=== PATIENT | male | born 1975 | race Caucasian/White ===

== ENCOUNTER 2020-08-18 01:35 | Emergency (ER) | payer OTHER, SELFPAY ==
[~2020-08-18] VITALS: Ht 177.8 cm; Wt 108.9 kg
[2020-08-18 01:35] VITALS: BP_SYST 140
--- NOTE | 2020-08-18 01:35 | NUR ---
Placed in room 02 . Placed on quality assurance monitor final, blood pressure machine and pulse oximeter. To gown for exam. Side rails up. Report given to OUTSIDE SALES REPRESENTATIVEIZAIAH MEDEIROS.
--- NOTE | 2020-08-18 01:35 | NUR ---
PT [facility] BIB AMBULANCE DUE TO OVERDOSE OF UNKNOWN SUBSTANCE. PATIENT WAS AT A FRIENDS HOUSE AND WAS NOTED TO BE LETHARGIC AND THEN BECAME UNRESPONSIVE. NARCAN WAS GIVEN AT SCENE AND IMMEDIATELY REGAINED CONCIOUSNESS. PATIENT STATES HAVING 0/10 PAIN ON THE PAIN SCALE. HAS HISTORY OF USING ETOH.
--- NOTE | 2020-08-18 01:35 | NUR ---
ER MD PEREYRA AT BEDSIDE EVALUATING PT
--- NOTE | 2020-08-18 02:00 | NUR ---
LAB AT BEDSIDE TO DRAW BLOOD. SPECIMEN TAKEN TO LAB FOR ANALYSIS.
[2020-08-18 02:13] LABS: BASOPHILS % (AUTO) 0.3 % (0.0-2.0); EOSINOPHILS % (AUTO) 0.1 % (0.0-4.0); HEMATOCRIT 46.2 % (36-54); HEMOGLOBIN 15.2 g/dL (14.0-18.0); MEAN CORPUSCULAR HEMOGLOBIN 31 pg (27-31); MEAN CORPUSCULAR HGB CONC 33 % (32-36); MEAN CORPUSCULAR VOLUME 93 fL (79.0-98.0); MONOCYTES # (AUTO) 0.4 K/uL (0.0-1.0); MONOCYTES % (AUTO) 2.8 % (1.7-9.3); NEUTROPHILS # (AUTO) 10.7 K/uL (1.8-7.7); NEUTROPHILS % (AUTO) 81.8 % (40.0-70.0); PLATELET COUNT (AUTO) 343 K/uL (130-430); RED BLOOD CELL COUNT(AUTO) 4.95 MIL/uL (4.2-6.2); RED CELL DISTRIBUTION WIDTH 13.2 % (9.0-15.0); WHITE BLOOD COUNT (AUTO) 13.1 K/uL (4.8-10.8)
[2020-08-18] MEDS ORDERED: NACL 0.9% 1,000 ML IV ONE ×2 (02:15→06:15)
--- NOTE | 2020-08-18 02:16 | NUR ---
RT AT BEDSIDE TO DRAW ABG SPECIMEN AND TO BE SENT TO LAB FOR ANALYSIS.
--- NOTE | 2020-08-18 02:17 | NUR ---
Assumed care of patient at change of shift. Introduced self to patient, who is currently a/o x4, carcamo's purposefully. iv h.l. to right hand patent and intact w/ 0.9% NS infusing. Patient resting quietly. No acute distress noted. Vital signs within normal range. Bed to low position sr up, Continue to monitor level of comfort.
--- NOTE | 2020-08-18 02:17 | NUR ---
REPORT GIVEN TO IZAIAH MOREL.
[2020-08-18 02:20] LABS: BILIRUBIN,URINE NEGATIVE (NEGATIVE); CLARITY/URINE CLEAR (CLEAR); COLOR,URINE YELLOW (YELLOW); GLUCOSE,URINE 3+ (NEGATIVE); KETONES,URINE TRACE (NEGATIVE); LEUKOCYTE ESTERASE ,URINE NEGATIVE (NEGATIVE); NITRITE, URINE NEGATIVE (NEGATIVE); PROTEIN URINE 1+ (NEGATIVE); UROBILINOGEN,URINE 0.2 (0.2-1.0)
[2020-08-18 02:21] LABS: BLOOD, URINE TRACE (NEGATIVE)
[2020-08-18 02:24] LABS: BACTERIA,URINE FEW /HPF (None Seen); WBC,URINE 0-3 /HPF (0-3)
[2020-08-18 02:26] LABS: ANION GAP 15 (5-15); CALCIUM 8.8 mg/dL (8.4-11.0); CHLORIDE 99 mmol/L (98-107); CREATININE 1.64 mg/dL (0.55-1.30); GFR AFRICAN AMERICAN 59 mL/min (>90); GLUCOSE 356 mg/dL (70-99); SODIUM SERUM 137 mmol/L (136-145); UREA NITROGEN, BLOOD 12 mg/dL (8-21)
[2020-08-18 02:31] LABS: ALANINE AMINOTRANSFERASE 122 U/L (12-78); ALBUMIN 3.9 g/dL (3.4-4.8); ASPARTATE AMINOTRANSFERASE 77 U/L (10-37); TOTAL BILIRUBIN 0.4 mg/dL (0.0-1.0)
[2020-08-18 02:32] LABS: ACETAMINOPHEN < 1 ug/mL (1-30); ALCOHOL, BLOOD < 3 mg/dL (<10)
[2020-08-18 02:33] LABS: BARBITURATE, URINE NEGATIVE (NEG <=200); BENZODIAZEPINE, URINE NEGATIVE (NEG <=150); CANNABINOID, URINE NEGATIVE (NEG <=50); COCAINE, URINE POSITIVE (NEG <=150); METHAMPHETAMINES SCREEN,URINE NEGATIVE (NEG <=500); OPIATE, URINE NEGATIVE (NEG <=100); PHENCYCLIDINE SCREEN,URINE NEGATIVE (NEG <=25); UR TRICYCLIC ANTIDEPRESSANTS NEGATIVE (NEG <=300); URINE AMPHETAMINE NEGATIVE (NEG <=500); URINE METHADONE NEGATIVE (NEG <=200); URINE OXYCODONE SCREEN NEGATIVE (NEG <=100); URINE PROPOXYPHENE SCREEN NEGATIVE (NEG <=300)
--- NOTE | 2020-08-18 03:04 | NUR ---
Pcxr done at bedside.
--- NOTE | 2020-08-18 04:34 | NUR ---
patient sleeping but is easily arousable, answering simple questions. kervin's purposefully. No change in mental status noted. Patient at bedside. Bed to low position sr up, continue to monitor. Patient resting quietly. No acute distress noted. Vital signs within normal range.
--- NOTE | 2020-08-18 06:14 | NUR ---
patient co2hgb noted at 3.6, placed on 2 liters n/c. await repeat abg x1 hour. Patient states uses a CPAP at home but denies sleep apnea. Pox noted at 95% on 2l when awake. Patient resting quietly. No acute distress noted. Vital signs within normal range. Continue to monitor.
[2020-08-18] MEDS ORDERED: ONDANSETRON HCL 4 MG/2 ML VIAL IVP ONE (06:15)
--- NOTE | 2020-08-18 06:38 | NUR ---
Patient medicated as ordered with 2nd liter NS bolus and zofran (patient stated had vomited x2). Will observe for any adverse reaction. repeat acck noted at 146 (MD Camilo notified). Bed to low position sr up, continue to monitor level of comfort. Addendum: 08/18/20 at 0641 by [email or web address] patient awake/alert, kervin purposefully, No neuro focal deficits noted. continue to monitor.
[2020-08-18 07:56] VITALS: BP_SYST 121
== END 2020-08-18 07:58 | disposition home or self-care (01) ==
LOC: SED 01:35
DX: T50.7X1A Poisoning by analeptics and opioid receptor antagonists, accidental (unintentional), initial encounter (principal); Y92.89 Other specified places as the place of occurrence of the external cause
CPT/HCPCS: 36415; 36600; 71045; 80053; 80307; 81000; 82803; 82962; 85025; 87426; 93005; 96361; 96374; 99285; G0480; G0481; G0482; J2405; J7030